=== PATIENT | male | born 1990 | race American Indian/Alaskan Native ===

== ENCOUNTER 2018-03-19 21:53 | Emergency (ER) | payer SELFPAY ==
[2018-03-19] MEDS ORDERED: NACL 0.9% 1000 ML 1,000 ML IV ONE (22:06)
[2018-03-19 22:42] LABS: Hematocrit 42.5 % (35.5-45.6); Hemoglobin 14.2 gm/dl (11.8-15.2); Mean Corpuscular HGB Conc 33 % (32-34); Mean Corpuscular Volume 91 fl (84-94); Red Blood Count 4.68 M/mm3 (3.65-5.03); Red Cell Distribution Width 13.6 % (13.2-15.2)
[2018-03-19 22:49] LABS: Platelet Count 268 K/mm3 (140-440)
--- NOTE | 2018-03-19 23:09 | XRay Report ---
FINAL REPORT PROCEDURE: XR ABDOMEN 2V TECHNIQUE: Abdominal series, including supine and upright AP views. HISTORY: abd pain COMPARISON: No prior studies are available for comparison. FINDINGS: Bowel gas pattern:Nonobstructive . Masses or calcifications:None . Bony structures:No significant abnormality . Pneumoperitoneum:None . Other:No significant findings . IMPRESSION: No acute abnormality.
[2018-03-19 23:21] LABS: Alanine Aminotransferase 14 units/L (7-56); Albumin 3.9 g/dL (3.9-5); BUN/Creatinine Ratio 8; Blood Urea Nitrogen 9 mg/dL (9-20); Calcium 9.5 mg/dL (8.4-10.2); Hemolysis Index 12
--- NOTE | 2018-03-19 23:24 | ED Elopement Review ---
ED Pt Elopement review - Results review Lab results: Laboratory Tests 03/19/18 03/19/18 22:30 22:30 WBC 10.1 RBC 4.68 Hgb 14.2 Hct 42.5 MCV 91 MCH 30 MCHC 33 RDW 13.6 Plt Count 268 Sodium 139 Potassium 3.8 Chloride 100.2 Carbon Dioxide 28 Anion Gap 15 BUN 9 Creatinine 1.1 Estimated GFR > 60 BUN/Creatinine Ratio 8 Glucose 81 Calcium 9.5 Total Bilirubin 0.40 AST 16 ALT 14 Alkaline Phosphatase 77 Total Protein 7.1 Albumin 3.9 Albumin/Globulin Ratio 1.2 Lipase 40 When I first attempted to see the patient, he was getting imaging studies. The patient returned from getting his x-rays, he apparently asked the nurse where the bathroom is. I went to the room to again attempt and evaluation and to do a history and physical and it appears that the patient has eloped from the emergency department. I have reviewed the patient's labs that have been done thus far and there are no apparent abnormalities within the blood count, metabolic panel and lipase. - Call Back decision Pt Call Back Decision: No action required
[2018-03-20 03:15] LABS: Basophils % (Manual) 0 % (0.0-1.8); Total Cells Counted 100
[2018-03-20 03:16] LABS: Anisocytosis 1+
[2018-03-20 03:17] LABS: Large Platelets 1+; Platelet Estimate Consistent w Auto; Poikilocytosis Few
[2018-03-20 14:47] VITALS: BP 120/74
== END 2018-03-19 22:40 | disposition left against medical advice (07) ==
LOC: ED 21:53
DX: R07.89 Other chest pain (principal); Z53.21 Procedure and treatment not carried out due to patient leaving prior to being seen by health care provider
CPT/HCPCS: 36415; 74019; 80053; 83690; 85007; 85025